=== PATIENT | male | born 1965 | race Caucasian/White ===

== ENCOUNTER 2023-09-17 18:11 | Emergency (ER) | payer OTHER, SELFPAY ==
[2023-09-17 18:17] VITALS: BP 187/104
--- NOTE | 2023-09-17 19:18 | ED.GENMED ---
History of Present Illness
General
Chief Complaint: Musculo-Skeletal Complaint
Time Seen by Provider: 09/17/23 18:37
Travel History
Have you had any contact with someone who has COVID-19?: No
Do you have any symptoms of coronavirus? Fever > 100 degrees, chills, cough, shortness of breath, sore throat, loss of taste or smell, muscle aches, or headache?: No
History of Present Illness
History of Present Illness:
58-year-old male presents to the emergency department for evaluation of right ankle swelling, redness, and pain ongoing for the past 6 to 7 days. He notes that prior to the onset of the symptoms he developed dysuria and low back pain as well as
right-sided conjunctivitis and was seen by his primary care physician, placed on Bactrim which she states promptly improved symptoms. He is still on the Bactrim however the right ankle swelling has not improved. He has been taking NSAIDs and
elevating the ankle without relief. Does note that during his last primary care visit he had a uric acid level that was negative. No history of gout. He is able to ambulate with some pain, no fevers or chills. He is monogamous, denies any
concern for sexually transmitted infections. No recent nausea, vomiting, or diarrhea.
Past History
Past History
ED Past Medical History: Other (kidney stones )
ED Past Surgical History: None
Social History
Tobacco: Smoker (1.5 to 2ppd tobacco )
Alcohol: Occasional
Drug: None
Personal:
Living: with family
Employment: Employed
Family History
Family History: Hypertension and Other (cva )
Review of Systems
Review of Systems
Allergies reviewed?: Yes
All Other Systems: ROS reviewed and negative except as documented in HPI and ROS
Phy Exam
Physical Exam
Physical Exam:
GEN: Well appearing, NAD, WDWN
HEENT: Oral mucosa moist, no scleral icterus
Cardiac: Regular rate
Lung: No respiratory distress, no tachypnea
MSK: Diffuse erythema predominantly to the medial right ankle extending to the distal calf. No pain with passive range of motion. Mild erythema of the medial ankle, no obvious wounds. Right dorsalis pedis pulses 2+
Skin: Good color, no pallor or jaundice, no rashes
Neuro: AO x3, moves all extremities freely
Psych: Calm, cooperative
Course
Orders/Labs/Results
Orders:
Orders
09/17/23 18:21
Ankle, Right 3 view CR [CR Ankle - Right Min 3 Views *] Urgent
Comment:
Reason For Exam: pain and swelling
09/17/23 19:28
CRP [C-Reactive Protein] Urgent
Complete Blood Count/With Diff Urgent
Comprehensive Metabolic Panel Urgent
ESR [Erythrocyte Sed Rate] Urgent
09/17/23 20:13
Cephalexin Monohydrate [Keflex] 500 mg PO NOW STA
Abnormal Lab Results
09/17/23
19:28
MCV 94.7 H fL
(80.0-94.0)
MCH 31.7 H pg
(27.0-31.0)
Absolute Lymphs (auto) 1.1 L 10^3/uL
(1.2-3.4)
Absolute Monos (auto) 1.0 H 10^3/uL
(0.1-0.6)
Immature Gran % 0.6 H %
(0-0.5)
Lymphocytes % 14.7 L %
(20.5-51.1)
Monocytes % 13.5 H %
(1.7-9.3)
ESR 50 H mm/hour
(0-20)
Sodium 133 L mmol/L
(135-145)
Glucose 106 H mg/dl
(70-99)
C-Reactive Protein 50.90 H mg/L
(0.0-10.00)
09/17/23 19:28
09/17/23 19:28
Vital Signs
Initial and Last Documented VS:
Initial Vital Signs
Temp Pulse Resp BP Pulse Ox
98.4 F 105 20 187/104 98
09/17/23 18:17 09/17/23 18:17 09/17/23 18:17 09/17/23 18:17 09/17/23 18:17
Last Documented Vital Signs
Temp Pulse Resp BP Pulse Ox
98.4 F 105 20 187/104 98
09/17/23 18:17 09/17/23 18:17 09/17/23 18:17 09/17/23 18:17 09/17/23 18:17
MDM/Problems Addressed
MDM/Problems Addressed:
Patient noted to have mildly elevated inflammatory markers however his swelling appears to be extra-articular and not reflective of a joint effusion. He has no pain with passive range of motion concerning for septic arthritis. I did perform a
limited bedside ultrasound to assess for joint effusion that might be amenable to arthrocentesis however no obvious effusion was noted on this limited exam. Reactive arthritis was considered however given the fact that the swelling is predominantly
soft tissue in nature and not intra-articular, reactive arthritis is highly unlikely. Will add cephalexin for more appropriate strep coverage in the setting of likely cellulitis. Patient is a primary care follow-up on Saturday, also advised
outpatient orthopedic follow-up if swelling persists
*Critical Care Note
Total Time (30-74mins, 75-104mins- exclusive of procedures): Not Applicable
ED Attending Note
-
Portions of this chart may have been created with voice recognition software.� Occasional wrong word or��sound alike� substitutions may have occurred due to the inherent limitations of voice recognition software.
Discharge Plan
Departure
Patient Disposition: Home (Routine Discharge)
Date of Disposition: 09/17/23
Time of Disposition: 20:12
Patient with high blood pressure during this ER visit?: Yes
Discharge Problem:
Cellulitis of right ankle
Instructions: Cellulitis (Skin Infection), Adult (DC)
Prescriptions:
New
cephalexin 500 mg tablet
500 mg PO QID 7 Days Qty: 28 0RF
prednisone 20 mg tablet
40 mg PO DAILY 5 Days Qty: 10 0RF
Discontinued
cephalexin 500 MG capsule
500 mg PO BID Qty: 14 0RF
No Action
aspirin [Aspir-Low] 81 MG tablet,delayed release (DR/EC)
81 mg PO DAILY
amlodipine 10 MG tablet
10 mg PO DAILY
Cholesterol Med
1 tab PO DAILY
indomethacin 25 MG capsule
25 mg PO BID Qty: 30 0RF
Referrals:
Neelima Aguilar CRNP [Family Provider] -
Lester Nagel MD [Active] -
Activity Restrictions/Additional Instructions:
Keep leg elevated and ice often
Follow up with your primary doctor this week
If you develop fevers or worsening pain, return for re-evaluation
Follow up with Orthopedics as soon as possible
Interventions
Interventions:
*Risk Screen - Suicide Last Done: 09/17/23 21:20
*General Assessment Last Done: 09/17/23 21:20
*Neglect/Abuse Screening Last Done: 09/17/23 21:20
ED- Fall Risk Assessment Last Done: 09/17/23 21:20
*ED COVID-19 Vaccine History Last Done: 09/17/23 21:20
*Nursing Disposition Last Done: 09/17/23 21:20
ED-Musculoskeletal Assessment Last Done: 09/17/23 18:59
Discharge Date and Time
Discharge Date/Time: 09/17/23 20:35
[2023-09-17 19:38] LABS: % Basophils 0.4 % (0-2); % Eosinophils 2.6 % (0-6); % Immature Granulocytes 0.6 % (0-0.5); % Lymphocytes 14.7 % (20.5-51.1); % Monocytes 13.5 % (1.7-9.3); % Neutrophils 68.2 % (42.2-75.2); Absolute Eosinophils 0.2 10^3/uL (0-0.7); Absolute Lymphocytes 1.1 10^3/uL (1.2-3.4); Absolute Neutrophils 4.9 10^3/uL (1.4-6.5); Hematocrit 45.1 % (39.0-52.0); Hemoglobin 15.1 g/dL (13.0-18.0); Mean Corp Hgb Conc. 33.5 g/dL (33.0-37.0); Mean Corpuscular Hgb 31.7 pg (27.0-31.0); Mean Corpuscular Volume 94.7 fL (80.0-94.0); Mean Platelet Volume 9.6 fL (7.4-10.4); Nucleated Red Blood Cells % 0 % (-); Platelet Count 294 10^3/uL (130-400); Red Blood Cell Count 4.76 10^6/uL (4.70-6.10); Red Cell Dist. Width 12.2 % (11.5-14.5); White Blood Cell Count 7.2 10^3/uL (4.8-10.8)
[2023-09-17 19:43] LABS: Erythrocyte Sed Rate 50 mm/hour (0-20)
[2023-09-17 19:56] LABS: ALT (SGPT) 25 U/L (0-50); AST (SGOT) 25 U/L (17-59); Albumin 4.1 g/dl (3.5-5.0); Alkaline Phosphatase 82 U/L (38-126); Blood Urea Nitrogen 19 mg/dl (9-20); Calcium 9.8 mg/dl (8.4-10.2); Carbon Dioxide 22 mmol/L (22-30); Chloride 101 mmol/L (98-107); Glucose 106 mg/dl (70-99); Potassium 4.8 mmol/L (3.5-5.1); Sodium 133 mmol/L (135-145); Total Bilirubin 0.8 mg/dl (0.2-1.3); Total Protein 7.1 g/dl (6.3-8.2); eGFR > 60.00
[2023-09-17] MEDS: KEFLEX 500 MG PO (20:25)
== END 2023-09-17 20:35 | disposition home or self-care (01) ==
LOC: EMR 18:11
PROVIDERS: Physician Assistant; EMERGENCY PHYSICIAN Student in an Organized Health Care Education/Training Program; FAMILY PHYSICIAN Nurse Practitioner Adult Health
DX: L03.115 Cellulitis of right lower limb (principal); R22.41 Localized swelling, mass and lump, right lower limb; F17.200 Nicotine dependence, unspecified, uncomplicated; Z82.49 Family history of ischemic heart disease and other diseases of the circulatory system
CPT/HCPCS: 99283; 73610; 80053; 85025; 85652; 86140

== ENCOUNTER → 2023-09-30 16:36 | Outpatient (REF) | payer OTHER, SELFPAY | LOC: MRI 3T 16:36 | PROVIDERS: ATTENDING PHYSICIAN Orthopaedic Surgery; FAMILY PHYSICIAN Registered Nurse | DX: M25.571 Pain in right ankle and joints of right foot (principal) | CPT/HCPCS: 73723; A9575 ==

== ENCOUNTER → 2025-04-30 16:08 | Outpatient (REF) | payer OTHER, SELFPAY | LOC: PAVMRI 16:08 | PROVIDERS: ATTENDING PHYSICIAN Specialist; FAMILY PHYSICIAN Nurse Practitioner Adult Health | DX: M25.511 Pain in right shoulder (principal) | CPT/HCPCS: 73221 ==